=== PATIENT | female | born 1960 | race Two or more races ===

== ENCOUNTER 2023-04-13 10:06 | Outpatient (CLI) | payer OTHER | END 2023-04-13 10:09 | disposition home or self-care (01) | LOC: SONOGRAMA 10:06 | PROVIDERS: ATTEND Pathology Anatomic Pathology & Clinical Pathology | DX: D34 Benign neoplasm of thyroid gland (principal) ==

== ENCOUNTER 2024-10-27 09:23 | Outpatient (CLI) | payer OTHER | END 2024-10-27 09:24 | disposition home or self-care (01) | LOC: SONOGRAMA 09:23 | PROVIDERS: ATTEND Pathology Anatomic Pathology & Clinical Pathology | DX: E04.2 Nontoxic multinodular goiter (principal) ==